=== PATIENT | male | born 1985 | race Caucasian/White ===

== ENCOUNTER 2024-01-10 18:31 | Emergency (ER) | payer MEDICAID ==
[~2024-01-10] VITALS: Ht 180.3 cm; Wt 86.2 kg
[2024-01-10 19:05] VITALS: BP 120/66; TEMP 98.1; O2SAT 99
== END 2024-01-10 21:49 | disposition home or self-care (01) ==
LOC: ER 18:34
DX: M79.674 Pain in right toe(s) (principal)
CPT/HCPCS: 73630-TC